=== PATIENT | female | born 1960 | race Caucasian/White ===

== ENCOUNTER 2019-04-30 16:19 | Emergency (ER) | payer MEDICARE ==
[~2019-04-30 16:19] MED LIST: Iopamidol 370 76% 100 ML VIAL ONE; Sodium Chloride 0.9% 1,000 ML BAG ONE
[2019-04-30] MEDS ORDERED: Prochlorperazine 10 MG/2 ML VIAL ONE (16:49)
[2019-04-30] MEDS ORDERED: Morphine 4 MG/ML VIAL ONE (16:49)
[2019-04-30] MEDS ORDERED: Pantoprazole 40 MG VIAL ONE (16:49)
[2019-04-30 17:16] LABS: #Basophils 0.1 thou/uL (0.0-0.2); #Eosinphils 0.1 thou/uL (0.0-0.7); #Lymphocytes 1.4 thou/uL (1.20-3.40); #Monocytes 0.5 thou/uL (0.11-0.59); #Neutrophils 7.7 thou/uL (1.40-6.50); %Basophils 0.6 % (0.0-1.0); %Eosinophils 0.6 % (0.0-10.0); %Lymphocytes 14.5 % (21.0-51.0); %Monocytes 5.3 % (0.0-10.0); Hemoglobin 13.5 g/dL (12.0-16.0); Mean Corpuscular HGB CONC 31.9 g/dL (32.0-36.0); Mean Corpuscular Hemoglobin 27.2 pg (27.0-31.0); Mean Corpuscular Volume 85.4 fL (78.0-98.0); Mean Platelet Volume 6.4 fL (7.4-10.4); Platelet Count 308 thou/uL (130-400); RBC Distribution Width 13.6 % (11.5-14.5); Red Blood Cell (RBC) Count 4.95 mill/uL (4.20-5.40); White Blood Cell (WBC) Count 9.7 thou/uL (4.8-10.8)
--- NOTE | 2019-04-30 17:24 | RAD ---
Portable frontal chest radiograph: 04/30/2019 COMPARISON: None HISTORY: Nausea, vomiting, chest pain FINDINGS: Lungs are clear. Heart and mediastinal contours appear within normal limits. Degenerative c hange noted involving bilateral shoulders, right greater than left. IMPRESSION: No acute findings.
[2019-04-30 17:33] LABS: ALT (SGPT) 15 U/L (8-55); AST (SGOT) 12 U/L (5-34); Albumin 4.1 g/dL (3.5-5.0); Alkaline Phosphatase 62 U/L (40-110); Anion Gap 14 mmol/L (10-20); BUN (Urea Nitrogen) 9 mg/dL (9.8-20.1); Bilirubin, Total 0.4 mg/dL (0.2-1.2); Calc. Creatinine Clearance 0 mL/min (70-130); Calcium 9.7 mg/dL (7.8-10.44); Carbon Dioxide 28 mmol/L (22-29); Chloride 106 mmol/L (98-107); Estimated GFR-MDRD 86; Glucose 114 mg/dL (70-105); Lipase 21 U/L (8-78); Potassium 3.6 mmol/L (3.5-5.1); Protein, Total 7.1 g/dL (6.0-8.3); Sodium 144 mmol/L (136-145)
--- NOTE | 2019-04-30 18:06 | CT ---
EXAM: Chest, Abdomen and Pelvic CT scan with contrast: HISTORY: Pain COMPARISON: None FINDINGS: There is mild atelectasis of the pulmonary parenchyma. No lobar consolidation. No pleural effusion. No pneumothorax. No adenopathy. No acute process of the mediastinal structures. Liver: Intrahepatic biliary ductal dilatation related to reservoir effect Gallbladder:Surgically absent Pancreas:No acute pancreatic abnormality Spleen:Unremarkable. Adrenal glands:Unremarkable. Kidneys:Left renal cyst. Right kidney is unremarkable Bowel: There are loops of dilated fluid-filled bowel of the right abdomen, incompletely assessed by t manju of this exam, without the presence of enteric contrast. Urinary Bladder: The urinary bladder is unremarkable. Adenopathy:No adenopathy within the abdomen or pelvis. Free Air: No free air. Ascites: No ascites. Osseous structures: No acute osseous abnormalities. Postoperative fusion of the lumbosacral spine pre sent. IMPRESSION: Dilated fluid-filled small bowel of the right abdomen, of indeterminate etiology. Bowel is incomplete ly assessed on the basis of this exam without the presence of enteric contrast. Correlate clinically, and as necessary imaging follow-up may be obtained. Additional details are described above. Transcribed Date/Time: 04/30/2019 6:13 PM
== END 2019-04-30 18:46 | disposition left against medical advice (07) ==
LOC: MADERS 16:19
DX: K56.699 Other intestinal obstruction unspecified as to partial versus complete obstruction (principal)
CPT/HCPCS: 71045; 71260; 74177; 80053; 83605; 83690; 85025; 96361; 96374; 96375; C9113; J0780; J2270; J7050; Q9967